=== PATIENT | female | born 1995 | race Caucasian/White ===

== ENCOUNTER 2016-08-11 23:54 | Outpatient (CLI) | payer OTHER ==
[2016-08-12 00:38] VITALS: BP 126/80
== END 2016-08-12 01:19 | disposition home or self-care (01) ==
LOC: TRG 23:54
PROVIDERS: ATTEND Specialist
DX: O77.9 Labor and delivery complicated by fetal stress, unspecified (principal); O47.9 False labor, unspecified; Z3A.00 Weeks of gestation of pregnancy not specified
CPT/HCPCS: 59025